=== PATIENT | female | born 1965 | race Caucasian/White ===

== ENCOUNTER → 2017-03-03 | Outpatient (CLI) | payer OTHER ==
[~2017-03-03] MED LIST: ASPI325T17 PO; DIPH25TA PO; DOCU100T6 PO; LACT1CAP35 PO; METH500T98 PO; NAPR220C2 PO; NORE1TAB11 PO; OXYC5TAB3 PO
== END ==
LOC: CFH 09:18
PROVIDERS: ATTEND Specialist
DX: Z12.31 Encounter for screening mammogram for malignant neoplasm of breast (principal)
CPT/HCPCS: 77067

== ENCOUNTER → 2019-04-17 | Outpatient (CLI) | payer OTHER | END | disposition home or self-care (01) | LOC: CFH 09:58 | PROVIDERS: ATTEND Specialist | DX: Z13.6 Encounter for screening for cardiovascular disorders (principal); D47.3 Essential (hemorrhagic) thrombocythemia; Z82.49 Family history of ischemic heart disease and other diseases of the circulatory system | CPT/HCPCS: 75571 ==